=== PATIENT | male | born 1975 | race Caucasian/White ===

== ENCOUNTER 2018-04-10 21:10 | Inpatient (IN) | payer BC ==
[2018-04-10] MEDS ORDERED: ONDANSETRON 4 MG INJ IV (23:30)
[2018-04-11] MEDS ORDERED: GLUCOSE GEL 15 GRAM TUBE PO ×2 (04:30)
[2018-04-11] MEDS ORDERED: GLUCOSE GEL 15 GRAM TUBE BUCCAL (04:30)
[2018-04-11] MEDS ORDERED: GLUCAGON 1 MG INJ IM (04:30)
[2018-04-11] MEDS ORDERED: DEXTROSE 50% 50 ML SYRINGE IV ×2 (04:30)
[2018-04-11 06:46] LABS: ALANINE AMINOTRANSFERASE 60 IU/L (13-69); ALBUMIN 3.4 g/dl (3.3-4.9); ALBUMIN/GLOBULIN RATIO 1.17; ALKALINE PHOSPHATASE 65 IU/L (42-121); ANION GAP 13 (8-16); ASPARTATE AMINO TRANSFERASE 39 IU/L (15-46); BILIRUBIN,INDIRECT 0.6 mg/dl (0-1.1); BILIRUBIN,TOTAL 0.6 mg/dl (0.2-1.3); BLOOD UREA NITROGEN 28 mg/dl (7-20); CALCIUM 9.1 mg/dl (8.4-10.2); CARBON DIOXIDE 25 mmol/L (21-31); CHLORIDE 107 mmol/L (97-110); CREATININE 1.25 mg/dl (0.61-1.24); GLUCOSE 156 mg/dl (70-220); POTASSIUM 3.7 mmol/L (3.5-5.1); SODIUM 141 mmol/L (135-144); TOTAL PROTEIN 6.3 g/dl (6.1-8.1)
[2018-04-11] MEDS ORDERED: CARVEDILOL (CR) 80 MG CAP PO (08:00)
[2018-04-11] MEDS: SPIRONOLACTONE 25 MG TAB PO (09:10)
[2018-04-11] MEDS: LISINOPRIL 5 MG TAB PO (09:10)
[2018-04-11] MEDS: ASPIRIN (EC) 81 MG TAB PO (09:10)
[2018-04-11] MEDS: ACCU-CHEK XX ×3 (12:10→20:13)
[2018-04-11] MEDS: FUROSEMIDE 20 MG INJ IV (16:04)
[2018-04-11] MEDS: INSULIN ASPART [NOVOLOG] 3 ML PEN SC ×2 (17:25→20:13)
[2018-04-12] MEDS ORDERED: ACCU-CHEK XX (02:00)
[2018-04-12] MEDS: ACCU-CHEK XX ×4 (02:23→21:00)
[2018-04-12 06:27] LABS: MAGNESIUM 1.9 mg/dl (1.7-2.5)
[2018-04-12 06:27] LABS: PHOSPHORUS 4.9 mg/dl (2.5-4.9)
[2018-04-12 06:28] LABS: ANION GAP 11 (8-16); BLOOD UREA NITROGEN 28 mg/dl (7-20); CALCIUM 9.2 mg/dl (8.4-10.2); CARBON DIOXIDE 27 mmol/L (21-31); CHLORIDE 107 mmol/L (97-110); CREATININE 1.08 mg/dl (0.61-1.24); GLUCOSE 169 mg/dl (70-220); POTASSIUM 3.6 mmol/L (3.5-5.1); SODIUM 141 mmol/L (135-144)
[2018-04-12] MEDS: INSULIN ASPART [NOVOLOG] 3 ML PEN SC ×4 (08:06→21:00)
[2018-04-12] MEDS: LISINOPRIL 5 MG TAB PO (08:40)
[2018-04-12] MEDS: ASPIRIN (EC) 81 MG TAB PO (08:40)
[2018-04-12] MEDS: SPIRONOLACTONE 25 MG TAB PO (08:40)
[2018-04-12] MEDS: FUROSEMIDE 20 MG INJ IV ×2 (14:12→17:18)
[2018-04-12] MEDS ORDERED: traMADol 50 MG TAB PO (17:30)
[2018-04-12] MEDS: ALLOPURINOL 100 MG TAB PO (18:16)
[2018-04-12 19:51] LABS: URIC ACID 12.9 mg/dl (3.1-7.9)
[2018-04-13] MEDS: ACCU-CHEK XX ×4 (02:00→20:27)
[2018-04-13] MEDS: FUROSEMIDE 20 MG INJ IV ×2 (06:27→17:30)
[2018-04-13 07:03] LABS: ANION GAP 13 (8-16); BLOOD UREA NITROGEN 31 mg/dl (7-20); CALCIUM 9.3 mg/dl (8.4-10.2); CARBON DIOXIDE 26 mmol/L (21-31); CHLORIDE 106 mmol/L (97-110); GLUCOSE 154 mg/dl (70-220); POTASSIUM 3.5 mmol/L (3.5-5.1); SODIUM 141 mmol/L (135-144)
[2018-04-13 07:18] LABS: PHOSPHORUS 4.9 mg/dl (2.5-4.9)
[2018-04-13] MEDS: INSULIN ASPART [NOVOLOG] 3 ML PEN SC ×4 (07:54→20:26)
[2018-04-13] MEDS: ALLOPURINOL 100 MG TAB PO (08:10)
[2018-04-13] MEDS: ASPIRIN (EC) 81 MG TAB PO (08:10)
[2018-04-13] MEDS: SPIRONOLACTONE 25 MG TAB PO (08:11)
[2018-04-13] MEDS: LISINOPRIL 5 MG TAB PO (08:11)
[2018-04-13] MEDS: ACETAMINOPHEN 325 MG TAB PO (10:56)
[2018-04-13] MEDS: COLCHICINE 0.6 MG TAB PO (14:41)
[2018-04-13] MEDS: predniSONE 20 MG TAB PO (17:28)
[2018-04-14] MEDS: ACCU-CHEK XX ×2 (02:29→10:00)
[2018-04-14] MEDS: FUROSEMIDE 20 MG INJ IV (05:45)
[2018-04-14 06:00] LABS: ADD MAN DIFF? NO
[2018-04-14 06:22] LABS: WHITE BLOOD COUNT 7.4 10^3/ul (4.8-10.8)
[2018-04-14 06:22] LABS: BASOPHILS % 0.1 % (0.0-2.0); HEMATOCRIT 47.3 % (42.0-52.0); HEMOGLOBIN 15.7 g/dl (14.0-18.0); LYMPHOCYTES # 1.4 10^3/ul (0.8-2.9); LYMPHOCYTES % 18.8 % (15.0-51.0); MEAN CORPUSCULAR HEMOGLOBIN 29.6 pg (29.0-33.0); MEAN CORPUSCULAR HGB CONC 33.2 g/dl (32.0-37.0); MEAN CORPUSCULAR VOLUME 89.1 fl (82.0-101.0); MEAN PLATELET VOLUME 11.5 fl (7.4-10.4); MONOCYTE # 0.3 10^3/ul (0.3-0.9); MONOCYTES % 3.8 % (0.0-11.0); NEUTROPHIL # 5.7 10^3/ul (1.6-7.5); PLATELET COUNT 246 10^3/UL (140-415); RED BLOOD COUNT 5.31 10^6/ul (4.70-6.10); RED CELL DISTRIBUTION WIDTH 11.9 % (11.5-14.5)
[2018-04-14 06:39] LABS: ANION GAP 15 (8-16); BLOOD UREA NITROGEN 31 mg/dl (7-20); CALCIUM 9.7 mg/dl (8.4-10.2); CARBON DIOXIDE 27 mmol/L (21-31); CHLORIDE 103 mmol/L (97-110); CREATININE 1.22 mg/dl (0.61-1.24); GLUCOSE 236 mg/dl (70-220); POTASSIUM 4.3 mmol/L (3.5-5.1); SODIUM 141 mmol/L (135-144)
[2018-04-14 07:25] LABS: HEMOGLOBIN A1C 7.6 % (0-5.9)
[2018-04-14] MEDS: INSULIN ASPART [NOVOLOG] 3 ML PEN SC ×4 (07:43→20:30)
[2018-04-14] MEDS: ASPIRIN (EC) 81 MG TAB PO (08:07)
[2018-04-14] MEDS: SPIRONOLACTONE 25 MG TAB PO (08:07)
[2018-04-14] MEDS: LISINOPRIL 5 MG TAB PO (08:07)
[2018-04-14] MEDS: predniSONE 20 MG TAB PO (08:08)
[2018-04-14] MEDS: ALLOPURINOL 100 MG TAB PO (08:08)
[2018-04-14] MEDS: INSULIN GLARGINE [LANTus] (100 UNITS/ML) SYG SC (20:30)
[2018-04-15] MEDS: ACCU-CHEK XX (01:54)
[2018-04-15 06:16] LABS: ADD MAN DIFF? NO
[2018-04-15 06:22] LABS: WHITE BLOOD COUNT 10.8 10^3/ul (4.8-10.8)
[2018-04-15 06:22] LABS: BASOPHILS % 0.2 % (0.0-2.0); EOSINOPHILS # 0.1 10^3/ul (0.0-0.5); EOSINOPHILS % 0.5 % (0.0-7.0); HEMATOCRIT 45.7 % (42.0-52.0); LYMPHOCYTES # 3.6 10^3/ul (0.8-2.9); LYMPHOCYTES % 33.7 % (15.0-51.0); MEAN CORPUSCULAR HEMOGLOBIN 29.5 pg (29.0-33.0); MEAN CORPUSCULAR HGB CONC 32.8 g/dl (32.0-37.0); MEAN CORPUSCULAR VOLUME 89.8 fl (82.0-101.0); MEAN PLATELET VOLUME 11.8 fl (7.4-10.4); MONOCYTE # 0.9 10^3/ul (0.3-0.9); MONOCYTES % 8.4 % (0.0-11.0); NEUTROPHIL # 6.1 10^3/ul (1.6-7.5); NEUTROPHILS % 56.9 % (39.0-77.0); PLATELET COUNT 238 10^3/UL (140-415); RED BLOOD COUNT 5.09 10^6/ul (4.70-6.10); RED CELL DISTRIBUTION WIDTH 12.1 % (11.5-14.5)
[2018-04-15 06:47] LABS: ANION GAP 14 (8-16); BLOOD UREA NITROGEN 32 mg/dl (7-20); CALCIUM 9.4 mg/dl (8.4-10.2); CARBON DIOXIDE 24 mmol/L (21-31); CHLORIDE 105 mmol/L (97-110); CREATININE 1.14 mg/dl (0.61-1.24); GLUCOSE 197 mg/dl (70-220); SODIUM 139 mmol/L (135-144)
[2018-04-15 06:50] LABS: CHOLESTEROL 177 mg/dl (100-200)
[2018-04-15 06:50] LABS: CHOL/HDL RATIO 6.1 RATIO; HDL CHOLESTEROL 29 mg/dl (27-67); LDL CHOLESTEROL,CALCULATED 108 mg/dl; TRIGLYCERIDES 198 mg/dl (0-149)
[2018-04-15] MEDS: INSULIN ASPART [NOVOLOG] 3 ML PEN SC ×4 (07:36→20:19)
[2018-04-15] MEDS: ASPIRIN (EC) 81 MG TAB PO (08:09)
[2018-04-15] MEDS: SPIRONOLACTONE 25 MG TAB PO (08:09)
[2018-04-15] MEDS: ALLOPURINOL 100 MG TAB PO (08:09)
[2018-04-15] MEDS: LISINOPRIL 5 MG TAB PO (08:10)
[2018-04-15] MEDS: FUROSEMIDE 20 MG INJ IV (08:15)
[2018-04-15] MEDS: predniSONE 10 MG TAB PO (10:08)
[2018-04-15] MEDS: INSULIN GLARGINE [LANTus] (100 UNITS/ML) SYG SC (20:20)
[2018-04-16 00:55] LABS: AMPHETAMINE/METHAMPHETAMINE Negative (NEGATIVE); BENZODIAZEPINES Negative (NEGATIVE); CANNABINOIDS Negative (NEGATIVE); COCAINE Negative (NEGATIVE); OPIATES Negative (NEGATIVE)
[2018-04-16 01:03] LABS: BARBITURATES Negative (NEGATIVE)
[2018-04-16] MEDS: ACCU-CHEK XX (02:00)
[2018-04-16] MEDS: INSULIN ASPART [NOVOLOG] 3 ML PEN SC ×4 (07:45→20:14)
[2018-04-16] MEDS: LISINOPRIL 5 MG TAB PO (08:08)
[2018-04-16] MEDS: ALLOPURINOL 100 MG TAB PO (08:08)
[2018-04-16] MEDS: SPIRONOLACTONE 25 MG TAB PO (08:09)
[2018-04-16] MEDS: ASPIRIN (EC) 81 MG TAB PO (08:09)
[2018-04-16] MEDS: FUROSEMIDE 20 MG INJ IV ×2 (08:10→18:35)
[2018-04-16] MEDS: predniSONE 10 MG TAB PO (08:10)
[2018-04-16] MEDS: INSULIN GLARGINE [LANTus] (100 UNITS/ML) SYG SC (20:14)
[2018-04-17] MEDS: ACCU-CHEK XX (02:03)
[2018-04-17] MEDS: FUROSEMIDE 20 MG INJ IV ×2 (05:31→17:05)
[2018-04-17 06:12] LABS: MAGNESIUM 2.1 mg/dl (1.7-2.5)
[2018-04-17 06:12] LABS: PHOSPHORUS 4.5 mg/dl (2.5-4.9)
[2018-04-17 06:16] LABS: ANION GAP 14 (8-16); BLOOD UREA NITROGEN 32 mg/dl (7-20); CALCIUM 9.7 mg/dl (8.4-10.2); CARBON DIOXIDE 26 mmol/L (21-31); CHLORIDE 103 mmol/L (97-110); CREATININE 1.13 mg/dl (0.61-1.24); GLUCOSE 241 mg/dl (70-220); POTASSIUM 4.1 mmol/L (3.5-5.1); SODIUM 139 mmol/L (135-144)
[2018-04-17] MEDS: INSULIN ASPART [NOVOLOG] 3 ML PEN SC ×3 (07:49→17:13)
[2018-04-17] MEDS: ASPIRIN (EC) 81 MG TAB PO (08:47)
[2018-04-17] MEDS: predniSONE 20 MG TAB PO (08:47)
[2018-04-17] MEDS: ACETAMINOPHEN 325 MG TAB PO (08:47)
[2018-04-17] MEDS: ALLOPURINOL 100 MG TAB PO (08:47)
[2018-04-17] MEDS: LISINOPRIL 5 MG TAB PO (08:48)
[2018-04-17] MEDS: SPIRONOLACTONE 25 MG TAB PO (08:48)
[2018-04-17] MEDS ORDERED: NITROGLYCERIN (SL) 0.4 MG TAB SL (10:30)
[2018-04-19] MEDS ORDERED: predniSONE 10 MG TAB PO (09:00)
[2018-04-21] MEDS ORDERED: predniSONE 5 MG TAB PO (09:00)
== END 2018-04-17 19:46 | disposition home or self-care (01) | DRG 292 ==
LOC: 6WM 21:10
DX: I50.23 Acute on chronic systolic (congestive) heart failure (principal); I42.0 Dilated cardiomyopathy; I11.0 Hypertensive heart disease with heart failure; E11.8 Type 2 diabetes mellitus with unspecified complications; M10.9 Gout, unspecified; R94.31 Abnormal electrocardiogram [ECG] [EKG]; E66.9 Obesity, unspecified; Z68.31 Body mass index [BMI] 31.0-31.9, adult
CPT/HCPCS: 71045; 80048; 80053; 80061; 80307; 82962; 83036; 83735; 84100; 84560; 85025; 93005; 93306; 99217; G0378

== ENCOUNTER 2018-08-27 06:07 | Observation (INO) | payer BC ==
[2018-08-27] MEDS ORDERED: IODIXANOL LOCM 50 ML BTL (06:45)
[2018-08-27] MEDS ORDERED: FENTAnyl 50 MCG/ML VIAL ×2 (06:45→07:23)
[2018-08-27] MEDS ORDERED: SOD CHLORIDE 0.9% 500 ML (06:45)
[2018-08-27] MEDS ORDERED: MIDAZOLAM 1 MG/ML 2 ML INJ ×5 (06:45→08:33)
[2018-08-27] MEDS ORDERED: LIDOCAINE 1% (MDV) 20 ML INJ (06:45)
[2018-08-27] MEDS ORDERED: BUPIVACAINE 0.5% (SDV) 30 ML INJ (06:45)
[2018-08-27] MEDS ORDERED: CEFAZOLIN 1 GM/50 ML (PMX) 100 ML IVPB (07:18)
[2018-08-27] MEDS ORDERED: DIPHENHYDRAMINE 50 MG INJ (07:45)
[2018-08-27] MEDS ORDERED: ACETAMINOPHEN 325 MG TAB PO (09:30)
[2018-08-27] MEDS: SOD CHLORIDE 0.9% 1,000 ML IV (09:35)
[2018-08-27] MEDS: OXYCODONE/ACETAMINOPHEN (5/325) TAB PO (11:40)
[2018-08-27] MEDS ORDERED: ONDANSETRON 4 MG INJ (12:08)
[2018-08-27] MEDS ORDERED: morphine 2 MG INJ (12:15)
[2018-08-27] MEDS: ONDANSETRON 4 MG INJ IV (12:19)
[2018-08-27] MEDS: morphine 2 MG INJ IV (12:20)
[2018-08-27] MEDS ORDERED: morphine 2 MG INJ IV (12:30)
[2018-08-27] MEDS: morphine 10 MG INJ IV (12:55)
[2018-08-27 13:44] LABS: ADD MAN DIFF? NO
[2018-08-27 13:46] LABS: WHITE BLOOD COUNT 12.9 10^3/ul (4.8-10.8)
[2018-08-27 13:46] LABS: BASOPHILS % 0.2 % (0.0-2.0); EOSINOPHILS # 0.2 10^3/ul (0.0-0.5); EOSINOPHILS % 1.2 % (0.0-7.0); HEMATOCRIT 39.5 % (42.0-52.0); HEMOGLOBIN 13.4 g/dl (14.0-18.0); LYMPHOCYTES # 4.2 10^3/ul (0.8-2.9); LYMPHOCYTES % 32.5 % (15.0-51.0); MEAN CORPUSCULAR HEMOGLOBIN 31.4 pg (29.0-33.0); MEAN CORPUSCULAR HGB CONC 33.9 g/dl (32.0-37.0); MEAN CORPUSCULAR VOLUME 92.5 fl (82.0-101.0); MEAN PLATELET VOLUME 10.3 fl (7.4-10.4); MONOCYTES % 7.8 % (0.0-11.0); NEUTROPHIL # 7.5 10^3/ul (1.6-7.5); NEUTROPHILS % 58.1 % (39.0-77.0); PLATELET COUNT 211 10^3/UL (140-415); RED BLOOD COUNT 4.27 10^6/ul (4.70-6.10); RED CELL DISTRIBUTION WIDTH 11.7 % (11.5-14.5)
[2018-08-27 14:04] LABS: CREATINE KINASE 138 IU/L (23-200)
[2018-08-27 14:06] LABS: ANION GAP 7 (5-13); BLOOD UREA NITROGEN 16 mg/dl (7-20); CALCIUM 8.9 mg/dl (8.4-10.2); CARBON DIOXIDE 27 mmol/L (21-31); CHLORIDE 106 mmol/L (97-110); CREATININE 0.97 mg/dl (0.61-1.24); Estimated GFR > 60 mL/min (>60); GLUCOSE 146 mg/dl (70-220); POTASSIUM 3.9 mmol/L (3.5-5.1); SODIUM 140 mmol/L (135-144)
[2018-08-27 14:17] LABS: CK INDEX 0.3; CK-MB 0.35 ng/ml (0.0-2.4); TROPONIN-I 0.047 ng/ml (0.000-0.120)
[2018-08-27 14:18] LABS: TROPONIN-I 0.048 ng/ml (0.000-0.120)
[2018-08-27] MEDS ORDERED: DEXTROSE 50% 50 ML SYRINGE IV ×2 (15:00)
[2018-08-27] MEDS ORDERED: GLUCOSE GEL 15 GRAM TUBE PO ×2 (15:00)
[2018-08-27] MEDS ORDERED: GLUCOSE GEL 15 GRAM TUBE BUCCAL (15:00)
[2018-08-27] MEDS ORDERED: GLUCAGON 1 MG INJ IM (15:00)
[2018-08-27] MEDS: LACTATED RINGER'S 1,000 ML IV (15:16)
[2018-08-27] MEDS: POLYMYXIN/BACITRACIN 1L IRRIG IRR (15:16)
[2018-08-27] MEDS: CEFAZOLIN 2 GM/50 ML (PMX) 50 ML (FOR WT < 120 KG) IVPB (15:17)
[2018-08-27] MEDS: ASPIRIN (EC) 81 MG TAB PO (15:17)
[2018-08-27] MEDS: CEFAZOLIN 1 GM/50 ML (PMX) 50 ML IVPB ×2 (15:20→22:13)
[2018-08-27] MEDS: morphine SULFATE/PF (2 MG/2 ML) SYG IV ×2 (17:35→22:14)
[2018-08-27] MEDS: INSULIN ASPART [NOVOLOG] 3 ML PEN SC ×2 (17:41→20:44)
[2018-08-27] MEDS: SACUBITRIL/VALSARTAN (24mg-26mg) TABLET PO (20:41)
[2018-08-28] MEDS: ACCU-CHEK XX (02:00)
[2018-08-28] MEDS: morphine SULFATE/PF (2 MG/2 ML) SYG IV ×3 (04:46→13:05)
[2018-08-28] MEDS: CEFAZOLIN 1 GM/50 ML (PMX) 50 ML IVPB ×2 (05:39→13:06)
[2018-08-28] MEDS: SOD CHLORIDE 0.9% 1,000 ML IV (07:00)
[2018-08-28] MEDS: LACTATED RINGER'S 1,000 ML IV (07:00)
[2018-08-28 07:44] LABS: ADD MAN DIFF? NO
[2018-08-28 07:54] LABS: WHITE BLOOD COUNT 8.4 10^3/ul (4.8-10.8)
[2018-08-28 07:54] LABS: BASOPHILS % 0.2 % (0.0-2.0); EOSINOPHILS # 0.3 10^3/ul (0.0-0.5); EOSINOPHILS % 3.2 % (0.0-7.0); HEMATOCRIT 37.9 % (42.0-52.0); HEMOGLOBIN 12.5 g/dl (14.0-18.0); LYMPHOCYTES # 3.1 10^3/ul (0.8-2.9); LYMPHOCYTES % 36.3 % (15.0-51.0); MEAN CORPUSCULAR HEMOGLOBIN 30.9 pg (29.0-33.0); MEAN CORPUSCULAR VOLUME 93.6 fl (82.0-101.0); MEAN PLATELET VOLUME 10.7 fl (7.4-10.4); MONOCYTE # 0.8 10^3/ul (0.3-0.9); MONOCYTES % 9.8 % (0.0-11.0); NEUTROPHIL # 4.2 10^3/ul (1.6-7.5); NEUTROPHILS % 50.3 % (39.0-77.0); PLATELET COUNT 200 10^3/UL (140-415); RED BLOOD COUNT 4.05 10^6/ul (4.70-6.10); RED CELL DISTRIBUTION WIDTH 11.6 % (11.5-14.5)
[2018-08-28 08:05] LABS: PHOSPHORUS 4.2 mg/dl (2.5-4.9)
[2018-08-28 08:08] LABS: ANION GAP 12 (5-13); BLOOD UREA NITROGEN 17 mg/dl (7-20); CALCIUM 9.3 mg/dl (8.4-10.2); CARBON DIOXIDE 30 mmol/L (21-31); CHLORIDE 101 mmol/L (97-110); CREATININE 1.04 mg/dl (0.61-1.24); Estimated GFR > 60 mL/min (>60); GLUCOSE 124 mg/dl (70-220); POTASSIUM 4.4 mmol/L (3.5-5.1); SODIUM 143 mmol/L (135-144)
[2018-08-28] MEDS: INSULIN ASPART [NOVOLOG] 3 ML PEN SC ×2 (08:35→11:50)
[2018-08-28] MEDS: ASPIRIN (EC) 81 MG TAB PO (08:37)
[2018-08-28] MEDS: SPIRONOLACTONE 25 MG TAB PO (08:37)
[2018-08-28] MEDS: FUROSEMIDE 20 MG TAB PO (08:38)
[2018-08-28] MEDS: SACUBITRIL/VALSARTAN (24mg-26mg) TABLET PO (09:40)
== END 2018-08-28 16:57 | disposition home or self-care (01) ==
LOC: SDS 06:07 → REC 13:46 → SDS 06:07 → REC 09:03 → TEL 13:46 → SDS 08:34 → TEL 09:03
PROVIDERS: Internal Medicine Cardiovascular Disease
DX: I42.9 Cardiomyopathy, unspecified (principal); R07.9 Chest pain, unspecified; I10 Essential (primary) hypertension; E11.9 Type 2 diabetes mellitus without complications; E78.5 Hyperlipidemia, unspecified; F15.10 Other stimulant abuse, uncomplicated; E66.9 Obesity, unspecified; Z68.28 Body mass index [BMI] 28.0-28.9, adult; Z95.810 Presence of automatic (implantable) cardiac defibrillator
CPT/HCPCS: 33249; 71045; 80048; 82550; 82553; 82962; 83735; 84100; 84484; 85025; 93005; G0378

== ENCOUNTER 2019-02-21 18:36 | Inpatient (IN) | payer BC ==
[2019-02-21] MEDS ORDERED: HYDROCODONE/APAP (7.5/325) TAB PO (22:00)
[2019-02-21] MEDS ORDERED: ALBUTEROL/IPRATROPIUM (NEB) 3 ML AMP HHN (22:00)
[2019-02-21 22:52] LABS: ADD MAN DIFF? NO
[2019-02-21 22:53] LABS: WHITE BLOOD COUNT 15.1 10^3/ul (4.8-10.8)
[2019-02-21 22:53] LABS: ABNORMAL IP MESSAGE 1; BASOPHILS % 0.2 % (0.0-2.0); EOSINOPHILS # 0.4 10^3/ul (0.0-0.5); EOSINOPHILS % 2.4 % (0.0-7.0); HEMOGLOBIN 11.8 g/dl (14.0-18.0); LYMPHOCYTES # 2.7 10^3/ul (0.8-2.9); LYMPHOCYTES % 17.6 % (15.0-51.0); MEAN CORPUSCULAR HEMOGLOBIN 30.6 pg (29.0-33.0); MEAN CORPUSCULAR HGB CONC 34.7 g/dl (32.0-37.0); MEAN CORPUSCULAR VOLUME 88.3 fl (82.0-101.0); MEAN PLATELET VOLUME 10.8 fl (7.4-10.4); MONOCYTE # 1.6 10^3/ul (0.3-0.9); MONOCYTES % 10.4 % (0.0-11.0); NEUTROPHIL # 10.4 10^3/ul (1.6-7.5); NEUTROPHILS % 68.9 % (39.0-77.0); PLATELET COUNT 195 10^3/UL (140-415); POSITIVE DIFF @See below; RED BLOOD COUNT 3.85 10^6/ul (4.70-6.10); RED CELL DISTRIBUTION WIDTH 12.5 % (11.5-14.5)
[2019-02-21 23:12] LABS: ALANINE AMINOTRANSFERASE 16 IU/L (13-69); ALBUMIN 3.8 g/dl (3.3-4.9); ALBUMIN/GLOBULIN RATIO 1.08; ALKALINE PHOSPHATASE 72 IU/L (42-121); ANION GAP 11 (5-13); ASPARTATE AMINO TRANSFERASE 17 IU/L (15-46); BILIRUBIN,INDIRECT 0.9 mg/dl (0-1.1); BILIRUBIN,TOTAL 0.9 mg/dl (0.2-1.3); BLOOD UREA NITROGEN 14 mg/dl (7-20); CALCIUM 8.8 mg/dl (8.4-10.2); CARBON DIOXIDE 25 mmol/L (21-31); CHLORIDE 108 mmol/L (97-110); CREATININE 1.07 mg/dl (0.61-1.24); Estimated GFR > 60 mL/min (>60); GLUCOSE 191 mg/dl (70-220); POTASSIUM 3.6 mmol/L (3.5-5.1); SODIUM 144 mmol/L (135-144); TOTAL PROTEIN 7.3 g/dl (6.1-8.1)
[2019-02-21] MEDS: CEFTRIAXONE 1 GM/50 ML (PMX) 50 ML IVPB (23:20)
[2019-02-22] MEDS: POTASSIUM CHLORIDE (SR) 20 MEQ TAB PO (01:37)
[2019-02-22] MEDS: SACUBITRIL/VALSARTAN (24mg-26mg) TABLET PO ×2 (08:09→22:11)
[2019-02-22] MEDS: ASPIRIN 81 MG TAB PO (08:10)
[2019-02-22] MEDS: FUROSEMIDE 20 MG TAB PO (08:10)
[2019-02-22] MEDS: SPIRONOLACTONE 25 MG TAB PO (08:10)
[2019-02-22] MEDS ORDERED: DEXTROSE 50% 50 ML SYRINGE IV ×2 (14:00)
[2019-02-22] MEDS ORDERED: GLUCAGON 1 MG INJ IM (14:00)
[2019-02-22] MEDS ORDERED: CEPASTAT LOZENGE MT (14:00)
[2019-02-22] MEDS ORDERED: GLUCOSE GEL 15 GRAM TUBE PO ×2 (14:00)
[2019-02-22] MEDS ORDERED: GLUCOSE GEL 15 GRAM TUBE BUCCAL (14:00)
[2019-02-22] MEDS: ENOXAPARIN 40 MG/0.4 ML SYG SC (14:59)
[2019-02-22] MEDS: MAGNESIUM CITRATE 300 ML BTL PO (15:44)
[2019-02-22] MEDS: INSULIN ASPART [NOVOLOG] 3 ML PEN SC ×2 (17:02→21:56)
[2019-02-22] MEDS: AMOXICILLIN 500 MG CAP PO ×2 (17:02→23:25)
[2019-02-22] MEDS: ACETAMINOPHEN 325 MG TAB PO (22:10)
[2019-02-23 05:18] LABS: ADD MAN DIFF? NO
[2019-02-23 05:22] LABS: WHITE BLOOD COUNT 8.2 10^3/ul (4.8-10.8)
[2019-02-23 05:22] LABS: BASOPHILS % 0.4 % (0.0-2.0); EOSINOPHILS # 0.5 10^3/ul (0.0-0.5); EOSINOPHILS % 5.8 % (0.0-7.0); HEMATOCRIT 36.3 % (42.0-52.0); HEMOGLOBIN 12.5 g/dl (14.0-18.0); LYMPHOCYTES # 3.5 10^3/ul (0.8-2.9); LYMPHOCYTES % 43.3 % (15.0-51.0); MEAN CORPUSCULAR HEMOGLOBIN 30.2 pg (29.0-33.0); MEAN CORPUSCULAR HGB CONC 34.4 g/dl (32.0-37.0); MEAN CORPUSCULAR VOLUME 87.7 fl (82.0-101.0); MEAN PLATELET VOLUME 10.7 fl (7.4-10.4); MONOCYTE # 0.9 10^3/ul (0.3-0.9); MONOCYTES % 11.4 % (0.0-11.0); NEUTROPHIL # 3.1 10^3/ul (1.6-7.5); NEUTROPHILS % 38.2 % (39.0-77.0); PLATELET COUNT 260 10^3/UL (140-415); RED BLOOD COUNT 4.14 10^6/ul (4.70-6.10); RED CELL DISTRIBUTION WIDTH 12.4 % (11.5-14.5)
[2019-02-23 05:47] LABS: LACTIC ACID 1.1 mmol/L (0.5-2.0)
[2019-02-23] MEDS: PANTOPRAZOLE (EC) 40 MG TAB PO (05:58)
[2019-02-23] MEDS: AMOXICILLIN 500 MG CAP PO ×3 (05:58→21:38)
[2019-02-23 05:59] LABS: ANION GAP 8 (5-13); BLOOD UREA NITROGEN 14 mg/dl (7-20); CARBON DIOXIDE 28 mmol/L (21-31); CHLORIDE 108 mmol/L (97-110); CREATININE 0.86 mg/dl (0.61-1.24); Estimated GFR > 60 mL/min (>60); GLUCOSE 136 mg/dl (70-220); POTASSIUM 3.9 mmol/L (3.5-5.1); SODIUM 144 mmol/L (135-144)
[2019-02-23 06:31] LABS: IRON 90 ug/dl (35-150)
[2019-02-23 06:42] LABS: % IRON SATURATION 35 % SAT (22-52); TOTAL IRON BINDING CAPACITY 258 ug/dl (241-421)
[2019-02-23] MEDS: INSULIN ASPART [NOVOLOG] 3 ML PEN SC ×4 (08:00→21:00)
[2019-02-23] MEDS: FUROSEMIDE 20 MG TAB PO (08:21)
[2019-02-23] MEDS: ASPIRIN 81 MG TAB PO (08:21)
[2019-02-23] MEDS: SPIRONOLACTONE 25 MG TAB PO (08:21)
[2019-02-23] MEDS: SACUBITRIL/VALSARTAN (24mg-26mg) TABLET PO ×2 (08:21→21:42)
[2019-02-23] MEDS: ENOXAPARIN 40 MG/0.4 ML SYG SC (08:22)
[2019-02-23 10:13] LABS: HEMOGLOBIN A1C 5.9 % (0-5.9)
[2019-02-23] MEDS: ACETAMINOPHEN 325 MG TAB PO (11:10)
[2019-02-24 05:50] LABS: ADD MAN DIFF? NO
[2019-02-24 05:55] LABS: WHITE BLOOD COUNT 8.2 10^3/ul (4.8-10.8)
[2019-02-24 05:55] LABS: BASOPHILS % 0.4 % (0.0-2.0); EOSINOPHILS # 0.4 10^3/ul (0.0-0.5); EOSINOPHILS % 5.4 % (0.0-7.0); HEMATOCRIT 36.8 % (42.0-52.0); HEMOGLOBIN 12.4 g/dl (14.0-18.0); LYMPHOCYTES # 3.5 10^3/ul (0.8-2.9); LYMPHOCYTES % 42.4 % (15.0-51.0); MEAN CORPUSCULAR HEMOGLOBIN 29.8 pg (29.0-33.0); MEAN CORPUSCULAR HGB CONC 33.7 g/dl (32.0-37.0); MEAN CORPUSCULAR VOLUME 88.5 fl (82.0-101.0); MEAN PLATELET VOLUME 10.5 fl (7.4-10.4); MONOCYTE # 0.8 10^3/ul (0.3-0.9); MONOCYTES % 9.7 % (0.0-11.0); NEUTROPHIL # 3.4 10^3/ul (1.6-7.5); NEUTROPHILS % 41.1 % (39.0-77.0); PLATELET COUNT 260 10^3/UL (140-415); RED BLOOD COUNT 4.16 10^6/ul (4.70-6.10)
[2019-02-24] MEDS: PANTOPRAZOLE (EC) 40 MG TAB PO (06:05)
[2019-02-24] MEDS: AMOXICILLIN 500 MG CAP PO ×2 (06:05→13:39)
[2019-02-24 06:52] LABS: ANION GAP 7 (5-13); BLOOD UREA NITROGEN 14 mg/dl (7-20); CARBON DIOXIDE 30 mmol/L (21-31); CHLORIDE 108 mmol/L (97-110); CREATININE 0.96 mg/dl (0.61-1.24); Estimated GFR > 60 mL/min (>60); GLUCOSE 134 mg/dl (70-220); SODIUM 145 mmol/L (135-144)
[2019-02-24] MEDS: INSULIN ASPART [NOVOLOG] 3 ML PEN SC ×2 (08:00→12:00)
[2019-02-24] MEDS: SACUBITRIL/VALSARTAN (24mg-26mg) TABLET PO (08:45)
[2019-02-24] MEDS: ASPIRIN 81 MG TAB PO (08:45)
[2019-02-24] MEDS: SPIRONOLACTONE 25 MG TAB PO (08:46)
[2019-02-24] MEDS: FUROSEMIDE 20 MG TAB PO (08:46)
[2019-02-24] MEDS: ENOXAPARIN 40 MG/0.4 ML SYG SC (09:01)
== END 2019-02-24 14:00 | disposition home or self-care (01) | DRG 872 ==
LOC: TEL 18:36 → 2NE 02-22 20:53
DX: A41.9 Sepsis, unspecified organism (principal); I42.8 Other cardiomyopathies; J03.90 Acute tonsillitis, unspecified; I11.0 Hypertensive heart disease with heart failure; I50.9 Heart failure, unspecified; E66.9 Obesity, unspecified; Z68.30 Body mass index [BMI] 30.0-30.9, adult; Z96.89 Presence of other specified functional implants; D64.9 Anemia, unspecified; M10.9 Gout, unspecified; B95.0 Streptococcus, group A, as the cause of diseases classified elsewhere; J02.0 Streptococcal pharyngitis; E11.9 Type 2 diabetes mellitus without complications; F17.200 Nicotine dependence, unspecified, uncomplicated
CPT/HCPCS: 80048; 80053; 82962; 83036; 83540; 83605; 84443; 85025; 87880